=== PATIENT | female | born 2000 | race Caucasian/White ===

== ENCOUNTER → 2021-03-27 16:11 | Outpatient (CLI) | payer OTHER, SELFPAY ==
[2021-03-27 17:47] LABS: Free T4 (Free Thyroxine) 0.93 ng/dl (0.78-2.19)
[2021-03-27 18:01] LABS: Thyroid Stimulating Hormone 1.35 uIU/mL (0.465-4.68)
[2021-03-29 04:23] LABS: Thyroid Peroxidase Antibodies <9 IU/mL (0-34); Triiodothyronine (T3) Free 3.5 pg/mL (2.0-4.4)
[2021-03-31 18:32] LABS: Thyroglobulin IMA CHARGE YES; Thyroglobulin Level <1.0 IU/mL (0.0-0.9)
== END ==
PROVIDERS: Visit Provider Nurse Practitioner Family
DX: R53.83 Other fatigue (principal); R63.5 Abnormal weight gain; R68.89 Other general symptoms and signs
CPT/HCPCS: 84439; 84443; 84481; 86376; 86800

== ENCOUNTER → 2021-07-11 10:06 | Outpatient (CLI) | payer OTHER, SELFPAY | PROVIDERS: PCP Nurse Practitioner Family; Visit Provider Nurse Practitioner Family | DX: J45.21 Mild intermittent asthma with (acute) exacerbation (principal); R05.9 Cough, unspecified | CPT/HCPCS: 94060; 94640 ==

== ENCOUNTER 2022-04-07 08:28 | Emergency (ER) | payer BC, SELFPAY ==
[2022-04-07] VITALS (7 sets, daily range): BP systolic 103–135; BP diastolic 55–79; PULSE 50–79; RESP 18; TEMP 36.8; O2SAT 97–100; BMI 37.5
--- NOTE | 2022-04-07 08:32 | PC.NURSE ---
pt ambulatory to restroom from waiting area without complications. She provided a UA that was sent to lab. She was ambulatory to ED room 9 without complications and hooked to monitor. Angelica Watts, RN at BS for triage. Friend at BS
[2022-04-07 08:39] LABS: Microscopic, Urine URINE MICROSCOPIC (MICROSCOPIC)
[2022-04-07 08:41] LABS: Appearance,Urine CLOUDY (Clear); Bilirubin,Urine Negative (Negative); Blood, Urine 3+ (Negative); Color,Urine YELLOW (Yellow); Glucose,Urine (UA) Negative (Negative); Ketones,Urine Negative (Negative); Leukocyte Esterase,Urine 1+ (Negative); Nitrate,Urine Negative (Negative); PH,Urine 5.5 (5.0-8.5); Protein,Urine TRACE (Negative); Specific Gravity, Urine >= 1.030 (1.005-1.030); Urobilinogen,Urine 0.2 EU/dl (0.2)
[2022-04-07 08:43] LABS: Urine Pregnancy, HCG Qual. Negative (Negative)
--- NOTE | 2022-04-07 08:43 | PC.NURSE ---
ER at speaking with patient; friend at BS
--- NOTE | 2022-04-07 08:50 | CT_ITS ---
FINAL REPORT CLINICAL HISTORY: RLQ PAIN, sharp pain since this morning FINDINGS: CT OF THE ABDOMEN AND PELVIS WITH CONTRAST Axial CT images of the abdomen and pelvis were obtained after the administration of IV contrast. Coronal reformatted images were also obtained and reviewed.This study was performed with techniques to keep radiation doses as low as reasonably achievable (ALARA). Individualized dose reduction techniques using automated exposure control or adjustment of mA and/or kV according to the patient's size were employed. Abdomen: There is mild bibasilar atelectasis. The heart is normal in size. The liver has an unremarkable appearance, without evidence of mass or biliary ductal dilatation. The gallbladder is present. The spleen is unremarkable. No adrenal mass is present. The pancreas has an unremarkable appearance. There is a small left renal cyst. There is mild right hydronephrosis and hydroureter secondary to a 2 mm UVJ stone. The aorta is normal in caliber. There is no free fluid or adenopathy. Pelvis: The appendix normal. The urinary bladder is unremarkable. No inflammatory process is seen. There is no evidence of mass or adenopathy. There is no evidence of bowel obstruction. IMPRESSION: Mild right hydronephrosis and hydroureter secondary to a 2 mm UVJ stone. Reviewed, Interpreted and Dictated by José Miguel Hays III, MD Transcribed by Nicole Reyes Authenticated and [facility]
--- NOTE | 2022-04-07 08:53 | PC.NURSE ---
ED MD AT BEDSIDE FOR EVALUATION
[2022-04-07 08:56] LABS: Basophils # 0.1 K/mm3 (0-0.2); Eosinophils # 0.7 K/mm3 (0.0-0.4); Eosinophils % 6.6 % (0.1-12.0); Hematocrit 43.2 % (37.0-47.0); Hemoglobin 14.3 g/dL (12.2-16.2); Lymphocytes % 37.6 % (10-50); Mean Corpuscular Hemoglobin 30.1 pg (27.0-31.2); Mean Corpuscular Volume 91.3 fl (81-99); Mean Platelet Volume 8.3 fl (7.4-10.4); Monocytes # 0.5 K/mm3 (0.1-1.0); Monocytes % 4.4 % (1.7-9.3); Neutrophils # 5.4 K/mm3 (1.8-7.8); Neutrophils % 50.4 % (37.0-80.0); Platelet Count 400 K/mm3 (142-424); Red Blood Count 4.73 M/mm3 (4.20-5.40); Red Cell Distribution Width 11.9 % (11.5-17.5); White Blood Count 10.7 K/mm3 (4.8-10.8)
--- NOTE | 2022-04-07 08:58 | HMH.EDGENADL ---
ED Disposition Clinical Impression: Ureteral calculus Disposition: Home, Self-Care Condition on Discharge: Good Instructions: DI for Kidney Stones Additional Instructions: Flomax as prescribed. Percocet as needed for pain. Zofran as needed for nausea. Additional instructions for KIDNEY STONE (URETERAL CALCULUS): See Dr. Hoffman as soon as possible for further evaluation. Drink plenty of fluids. Strain your urine and save any stones you catch. Return immediately if you develop a fever or have uncontrollable vomiting or uncontrollable pain. KIDNEY STONE DIET: Most kidney stones contain calcium oxalate. The logical assumption would be that you should avoid calcium and oxalate in your diet. Contrary to what you would think, this is not necessarily the case. What is actually recommended for kidney stone prevention is a diet that contains MODERATELY HIGH AMOUNTS OF CALCIUM and is LOW IN SODIUM with PLENTY OF FLUIDS. Recommendations: Drink a lot of water each day: A minimum would be 8-10 glasses (8 oz each) of fluid per day. Sodium: Try not to get more than 1500 mg a day. Calcium: Dietary calcium prevents absorption of oxalate which helps prevent stones. Make sure you get about 1000 to 1200 mg a day. You can get enough calcium from dairy products without taking supplements. Calcium should be ingested with meals, not in between meals. You need to get your calcium at mealtime to decrease the absorption of oxalate from other foods. Eat dairy with each meal (e.g. milk or cheese or yogurt). Oxalate: Although some experts recommend avoiding oxalate in your diet, there have been no studies that prove this works. Eating more calcium will reduce oxalate absorption, and is probably all that is needed to reduce oxalate in your urine. Oxalate containing foods are generally good for you in all other respects - leafy greens, nuts, etc... So avoiding them unnecessarily might not be the best thing for your health. ALSO: If you retrieve your stone by straining your urine, take it to your physician for stone analysis, which can help tailor your dietary recommendations. For further reading, check out the [facility] web page about the kidney stone diet: [email or web address] Additional instructions for CONTROLLED SUBSTANCES: You have been prescribed a medication that is a controlled substance. Controlled substances include pain medications known as opiates and sedative nerve medications known as benzodiazepines. Tramadol, fioricet, and gabapentin are also controlled substances. Some common opiates include: Codeine (such as Tylenol #3) Hydrocodone (Vicodin, Lortab, Lorcet, [place]) Oxycodone (Percocet, Percodan, Oxycodone, Oxy IR) Some common benzodiazepines include: Diazepam (Valium) Lorazepam (Ativan) Alprazolam (Xanax) Clonazepam (Klonopin) Oxazepam (Serax) All of these controlled substances are highly addictive and frequently abused. Misuse can and frequently does lead to addiction as well as overdose and . Medication should be stored in a locked cabinet or other secure storage unit. Do not store the medication in a motor vehicle. Short term supplies, 3 days or less, are prescribed because of the highly addictive nature of the medication. Any of the controlled substance medication NOT taken should be disposed of properly and NOT SAVED. The recommended method of disposing of unused medications is: Place the medicines in a sealable plastic bag. If the medicine is a solid, crush it or add water to dissolve it. Add something undesirable (cat litter, coffee grounds, etc.) Dispose of sealed bag in household trash Do not flush or pour unused medicines down a sink or drain. Controlled substances should not be shared, given away or sold. Because of the addictive nature and frequent abuse, these medications are sometimes stolen. These medications should be
[2022-04-07 09:01] LABS: Alanine Aminotransferase 30 U/L (12-78); Albumin Level 4.5 g/dl (3.5-5.0); Albumin/Globulin Ratio 1.6 (1.1-1.8); Alkaline Phosphatase 89 U/L (38-126); Amylase 58 U/L (30-110); Anion Gap 12.4 mEq/L (5-15); Aspartate Amino Transferase 35 U/L (14-36); Blood Urea Nitrogen 11 mg/dl (7-17); Carbon Dioxide 27 mmol/L (22.0-30.0); Chloride 103 mmol/L (98-107); Creatinine Clearance Estimated 183 mL/min (50-200); Estimated Glomerular Filt Rate 104 ml/min (>60); GFR (African American) 125 ML/MIN (>60); Globulin 2.9 g/dL (1.3-3.2); Glucose 145 mg/dl (74-100); Lipase 55 U/L (23-300); Potassium 3.4 mmoL/L (3.5-5.1); Sodium 139 mmol/L (136-145); Total Protein,Serum 7.4 g/dl (6.3-8.2)
[2022-04-07 09:04] LABS: Bacteria,Urine 1+ /lpf; RBC,Urine 20-50 #/hpf (0-3)
--- NOTE | 2022-04-07 09:04 | PC.NURSE ---
PT UPDATED ON PLAN OF CARE, IVF'S STARTED. WARM BLANKET PROVIDED. S.O AT BEDSIDE. NO NEEDS VOICED
[2022-04-07 09:12] LABS: Bilirubin,Total 0.1 mg/dl (0.2-1.3)
--- NOTE | 2022-04-07 09:13 | PC.NURSE ---
pain meds and blanket given pt resting family at BS
--- NOTE | 2022-04-07 09:25 | PC.NURSE ---
[address] PER WC
--- NOTE | 2022-04-07 09:32 | PC.NURSE ---
PT RETURNED FROM CT
--- NOTE | 2022-04-07 10:05 | PC.NURSE ---
Rounded on patient; patient aware that we are still waiting on imaging scans to be read. Friend at and they have no needs at this time.
--- NOTE | 2022-04-07 10:31 | PC.NURSE ---
MD AT BEDSIDE TO UPDATE PT ON PLAN OF CARE
--- NOTE | 2022-04-07 10:32 | PC.NURSE ---
ER MD at BS speaking with patient regarding results and update on POC. Mother at BS at this time
== END 2022-04-07 11:09 | disposition home or self-care (01) ==
PROVIDERS: Emergency Provider Emergency Medicine; PCP Nurse Practitioner Family
DX: N20.1 Calculus of ureter (principal)
CPT/HCPCS: 74177; 80053; 81001; 81025; 82150; 83690; 85025; 87086; 96374; 96375; 99284; J2405; Q9967